=== PATIENT | male | born 1960 | race Caucasian/White ===

== ENCOUNTER 2018-06-08 20:41 | Observation (INO) | payer OTHER ==
--- NOTE | 2018-06-08 20:58 | ER Document Report ---
ED General - General Chief Complaint: S/S of Possible Stroke Stated Complaint: LEG/ARM NUMBNESS Time Seen by Provider: 06/08/18 20:49 Notes: Patient is a 57-year-old male with a past medical history of diabetes, obesity, hypertension, presents with an episode of left-sided weakness that started abruptly and has now resolved. Patient states that he was in [employer], began to feel very weak, noticed that he was having difficulty walk walking and began to feel like his left side was extremely weak. He states that he had to lift his left leg while trying get into his truck with his right arm. He noticed while his drove the truck home that he could not raise his left arm and keep it up. His stated that she had to help assist him into the house as his left-sided appeared so weak. She also noted that he had some slurred spee ch. The symptoms lasted for approximate 15-20 minutes and then resolved spontaneously. No history of similar symptoms in the past. He has not contacted his general physician regarding today's concerns. Past Medical History - General Information source: Patient - Social History Smoking Status: Never Smoker Frequency of alcohol use: Occasional Drug Abuse: None Lives with: Spouse/Significant other Family History: Reviewed & Not Pertinent Review of Systems - Review of Systems Notes: Constitutional: Negative for fever. HENT: Negative for sore throat. Eyes: Negative for visual changes. Cardiovascular: Negative for chest pain. Respiratory: Negative for shortness of breath. Gastrointestinal: Negative for abdominal pain, vomiting or diarrhea. Genitourinary: Negative for dysuria. Musculoskeletal: Negative for back pain. Skin: Negative for rash. Neurological: Negative for headaches, positive for left-sided weakness now re solved 10 point ROS negative except as marked above and in HPI. Physical Exam - Vital signs Vitals: Temp 98.5 F 06/08/18 20:57 Interpretation: Normal Notes: PHYSICAL EXAMINATION: GENERAL: Well-appearing, well-nourished and in no acute distress. HEAD: Atraumatic, normocephalic. EYES: Pupils equal round and reactive to light, extraocular movements intact, sclera anicteric, conjunctiva are normal. ENT: nares patent, oropharynx clear without exudates. Moist mucous membranes. NECK: Normal range of motion, supple without lymphadenopathy LUNGS: Breath sounds clear to auscultation bilaterally and equal. No wheezes rales or rhonchi. HEART: Regular rate and rhythm without murmurs ABDOMEN: Soft, nontender, normoactive bowel sounds. No guarding, no rebound. No masses appreciated. EXTREMITIES: Normal range of motion, no pitting or edema. No cyanosis. NEUROLOGICAL: Face symmetric. Tongue protrudes midline. Extraocular motions intact. Pupils are 2 mm and equally reactive. Normal speech, normal gait. 5 out of 5 strength in both the distal and proximal upper and lower extremities bilaterally. Sensation is grossly intact throughout. Finger to nose testing normal. Pronator drift normal. PSYCH: Normal mood, normal affect. SKIN: Warm, Dry, normal turgor, no rashes or lesions noted. Course - Re-evaluation Re-evalutation: 06/08/18 20:57 Patient presents with symptoms consistent with a TIA. Had left-sided weakness difficulty standing secondary to weakness on his left side. Symptoms have all now resolved. NIH stroke scale at time of my assessment immediately upon smita ent's arrival to the emergency department is 0. CT the head unremarkable. Labs are currently pending. ABCD 2 score is 5. 06/08/18 21:56 Patient remains without any focal neurologic deficits. Given his elevated ABCD 2 score, hypertension and diabetes with elevated glucose at time of presentation he is in the moderate risk category. He and his elected to remain in the emergency department for admission to the hospital as post outpatient follow-up which I believe is very appropriate given his elevated risk. He has been started on clopidogrel and aspirin. 06/08/18 22:02 I discussed this case with Dr. Juan Juarez who has accepted the patient for hospitalization. - Vital Signs Vital signs: Temp Pulse Resp BP Pulse Ox 98.5 F 96 27 H 169/99 H 99 06/08/18 21:30 06/08/18 21:17 06/09/18 02:51 06/09/18 02:51 06/09/18 02:51 - Laboratory Result Diagrams: 06/08/18 21:33 06/08/18 21:33 Laboratory results interpreted by me: 06/08/18 06/08/18 06/08/18 21:31 21:33 21:33 Chloride 97 L Carbon Dioxide 32 H Glucose 232 H POC Glucose 230 H Hemoglobin A1c % 6.8 H - Diagnostic Test Radiology reviewed: Image reviewed, Reports reviewed Radiology results interpreted by me: 06/08/18 22:02 CT head: No acute intracranial bleed or mass Chest x-ray: No acute infiltrate pneumothorax Discharge - Discharge Clinical Impression: TIA (transient ischemic attack), Left-sided weakness, Hyperglycemia, Essential hypertension Condition: Fair Disposition: ADMITTED INPATIENT Admitting Provider: Hospitalist Unit Admitted: [facility]
--- NOTE | 2018-06-08 21:17 | RADIOLOGY REPORT (SQ) ---
EXAM DESCRIPTION: XR CHEST 1 VIEW COMPLETED DATE/TME: 06/08/2018 20:51 CLINICAL HISTORY: 57 years, Male, stroke like symptoms COMPARISON: None. NUMBER OF VIEWS: 1 TECHNIQUE: Portable chest LIMITATIONS: None. FINDINGS: The heart size is normal. Lungs are clear. No pneumothorax IMPRESSION: Negative chest copyright 2010 [employer]- All Rights Reserved
--- NOTE | 2018-06-08 21:21 | RADIOLOGY REPORT (SQ) ---
EXAM DESCRIPTION: CT HEAD WITHOUT IV CONTRAST COMPLETED DATE/TME: 06/08/2018 00:00 CLINICAL HISTORY: 57 years, Male, stroke symptoms COMPARISON: None. TECHNIQUE: 207 Images stored on PACS. All CT scanners at this facility use dose modulation, iterative reconstruction, and/or weight based dosing when appropriate to reduce radiation dose to as low as reasonably achievable (ALARA). [facility]: Dose Right [facility]: CareDose [facility]: Dose Right [facility]: Teradose 4D [facility]: [employer] LIMITATIONS: None. FINDINGS: The globes are intact. The paranasal sinuses and mastoid air cells are unremarkable. No displaced or depressed skull fracture. No intra or extra-axial hemorrhage. CT is limited for evaluation of acute infarct. No CT evidence for large or territorial acute infarct. No mass or midline shift IMPRESSION: Negative exam TECHNICAL DOCUMENTATION: Quality ID # 436: Final reports with documentation of one or more dose reduction techniques (e.g., Automated exposure control, adjustment of the mA and/or kV according to patient size, use of iterative reconstruction technique) copyright 2011 [employer]- All Rights Reserved
[2018-06-08 21:41] LABS: ABSOLUTE BASOPHILS # (AUTO) 0.1 10^3/uL (0.0-0.2); ABSOLUTE EOSINOPHILS # (AUTO) 0.3 10^3/uL (0.0-0.6); ABSOLUTE LYMPHOCYTES (AUTO) 2.5 10^3/uL (0.5-4.7); ABSOLUTE MONOCYTES (AUTO) 0.8 10^3/uL (0.1-1.4); ABSOLUTE NEUT (AUTO) 5.5 10^3/uL (1.7-8.2); EOSINOPHILS % (AUTO) 2.8 % (0-6); HEMATOCRIT 39.3 % (37.9-51.0); HEMOGLOBIN 13.6 g/dL (13.5-17.0); LYMPHOCYTES % (AUTO) 27.3 % (13-45); MEAN CORPUSCULAR HEMOGLOBIN 29.2 pg (27.0-33.4); MEAN CORPUSCULAR HGB CONC 34.5 g/dL (32.0-36.0); MEAN CORPUSCULAR VOLUME 85 fl (80-97); MONOCYTES % (AUTO) 8.5 % (3-13); PLATELET COUNT 290 10^3/uL (150-450); RED BLOOD COUNT 4.65 10^6/uL (4.35-5.55); RED CELL DISTRIBUTION WIDTH 13.3 % (11.5-14.0); SEGMENTED NEUTROPHILS % (AUTO) 60.4 % (42-78); TOTAL CELLS COUNTED % (AUTO) 100 %; WHITE BLOOD COUNT 9.1 10^3/uL (4.0-10.5)
[2018-06-08 21:48] LABS: INTERNATIONAL RATION (INR) 0.87; PROTHROMBIN TIME 12.3 SEC (11.4-15.4)
[2018-06-08 21:49] LABS: PARTIAL THROMBOPLASTIN TIME 27.5 SEC (23.5-35.8)
[2018-06-08] MEDS ORDERED: CLOPIDOGREL BISULFATE 300 MG TABLET PO ONE (21:56)
[2018-06-08] MEDS ORDERED: ASPIRIN 81 MG TABLET, CHEWABLE PO ONE (21:57)
[2018-06-08] MEDS ORDERED: LOSARTAN POTASSIUM 50 MG TABLET PO ONE (21:57)
[2018-06-08 22:04] LABS: ALANINE AMINOTRANSFERASE 42 U/L (21-72); ALBUMIN 4.4 g/dL (3.5-5.0); ALKALINE PHOSPHATASE 70 U/L (38-126); ANION GAP 8 (5-19); ASPARTATE AMINO TRANSFERASE 19 U/L (17-59); BILIRUBIN,DIRECT 0.1 mg/dL (0.0-0.4); BILIRUBIN,TOTAL 0.5 mg/dL (0.2-1.3); BLOOD UREA NITROGEN 18 mg/dL (7-20); CALCIUM 9.9 mg/dL (8.4-10.2); CARBON DIOXIDE 32 mmol/L (22-30); CHLORIDE 97 mmol/L (98-107); CREATINE KINASE 87 U/L (55-170); GLUCOSE 232 mg/dL (75-110); TOTAL PROTEIN 6.8 g/dL (6.3-8.2)
[2018-06-08 22:14] LABS: CREATINE KINASE MB 1.31 ng/mL (<4.55)
[2018-06-08 22:17] LABS: TROPONIN I < 0.012 ng/mL
[2018-06-08] MEDS ORDERED: DEXTROSE 40% GEL 15 GM TUBE PO PRN ×2 (22:24)
[2018-06-08] MEDS ORDERED: ACETAMINOPHEN 325 MG TABLET PO PRN (22:24)
[2018-06-08] MEDS ORDERED: DEXTROSE 50%-WATER 25 GM/50 ML DISP.SYRIN IV PRN ×2 (22:24)
[2018-06-08] MEDS ORDERED: DOCUSATE SODIUM 100 MG CAPSULE PO PRN (22:24)
[2018-06-08] MEDS ORDERED: INSULIN LISPRO 100 UNIT/ML 3 ML VIAL SUBCUT PRN (22:24)
[2018-06-08] MEDS ORDERED: GLUCAGON,HUMAN RECOMB 1 MG INJ IM PRN (22:24)
[2018-06-08] MEDS: ATORVASTATIN CALCIUM 80 MG TABLET PO SCH (22:37)
--- NOTE | 2018-06-09 06:27 | PDOC H&P ---
History of Present Illness Admission Date/PCP: 06/08/18 22:31 RAYMOND SIBLEY MD Patient complains of: Left arm and leg weakness History of Present Illness: HEENA CHAMPAGNE is a 57 year old male with a past medical history of hypertension, obesity and diabetes who presents with a 20-minute abrupt onset of left-sided weakness occurring 2 hours ago while shopping at the supermarket. He has subsequently returned to baseline he had associated slurred speech, denied palpitations, chest pain, headache, blurred vision, dizziness, receptive aphasia or previous episode. He denies recent change in medications and is otherwise felt well in the emergency room his workup is unremarkable with exception to uncontrolled hypertension. He is referred to the hospitalist for observation. Past Medical History Cardiac Medical History: Reports: Hypertension Pulmonary Medical History: Reports: None EENT Medical History: Reports: None Neurological Medical History: Reports: None Endocrine Medical History: Reports: Diabetes Mellitus Type 2 Renal/ Medical History: Reports: None Malignancy Medical History: Reports: None GI Medical History: Reports: None Musculoskeltal Medical History: Reports: None Skin Medical History: Reports: None Psychiatric Medical History: Reports: None Traumatic Medical History: Reports: None Hematology: Reports: None Infectious Medical History: Reports: None Past Surgical History Past Surgical History: Reports: None Social History Information Source: Patient, [facility] Lives with: Spouse/Significant other Smoking Status: Never Smoker Frequency of Alcohol Use: None Drugs: None - Advance Directive Resuscitation Status: Full Code Family History Family History: CVA Parental Family History Reviewed: Yes Children Family History Reviewed: Yes Sibling(s) Family History Reviewed.: Yes Review of Systems Constitutional: ABSENT: chills, fever(s), headache(s), weight gain, weight loss Eyes: ABSENT: visual disturbances Ears: ABSENT: hearing changes Cardiovascular: ABSENT: chest pain, dyspnea on exertion, edema, orthropnea, palpitations Respiratory: ABSENT: cough, hemoptysis Gastrointestinal: ABSENT: abdominal pain, constipation, diarrhea, hematemesis, hematochezia, nausea, vomiting Genitourinary: ABSENT: dysuria, hematuria Musculoskeletal: ABSENT: joint swelling Integumentary: ABSENT: rash, wounds Neurological: ABSENT: abnormal gait, abnormal speech, confusion, dizziness, focal weakness, syncope Psychiatric: ABSENT: anxiety, depression, homidical ideation, suicidal ideation Endocrine: ABSENT: cold intolerance, heat intolerance, polydipsia, polyuria Hematologic/Lymphatic: ABSENT: easy bleeding, easy bruising Physical Exam Vital Signs: Temp Pulse Resp BP Pulse Ox 98.5 F 88 18 142/78 H 97 06/08/18 21:30 06/09/18 04:31 06/09/18 04:31 06/09/18 04:31 06/09/18 04:31 Intake & Output 06/07/18 06/08/18 06/09/18 11:59 11:59 11:59 Weight 124.738 kg General appearance: PRESENT: no acute distress, well-developed, well-nourished Head exam: PRESENT: atraumatic, normocephalic Eye exam: PRESENT: conjunctiva pink, EOMI, PERRLA. ABSENT: scleral icterus Ear exam: PRESENT: normal external ear exam Mouth exam: PRESENT: moist, tongue midline Neck exam: ABSENT: carotid bruit, JVD, lymphadenopathy, thyromegaly Respiratory exam: PRESENT: clear to auscultation kait. ABSENT: rales, rhonchi, wheezes Cardiovascular exam: PRESENT: RRR. ABSENT: diastolic murmur, rubs, systolic murmur Pulses: PRESENT: normal dorsalis pedis pul Vascular exam: PRESENT: normal capillary refill GI/Abdominal exam: PRESENT: normal bowel sounds, soft. ABSENT: distended, guarding, mass, organolmegaly, rebound, tenderness Rectal exam: PRESENT: deferred Extremities exam: PRESENT: full ROM. ABSENT: calf tenderness, clubbing, pedal edema Neurological exam: PRESENT: alert, awake, oriented to person, oriented to place, oriented to time, oriented to situation, CN II-XII grossly intact. ABSENT: motor sensory deficit Psychiatric exam: PRESENT: appropriate affect, normal mood. ABSENT: homicidal ideation, suicidal ideation Skin exam: PRESENT: dry, intact, warm. ABSENT: cyanosis, rash Results Laboratory Results: 06/08/18 21:33 06/08/18 21:33 06/08/18 06/08/18 21:33 21:33 WBC 9.1 RBC 4.65 Hgb 13.6 Hct 39.3 MCV 85 MCH 29.2 MCHC 34.5 RDW 13.3 Plt Count 290 Seg Neutrophils % 60.4 Lymphocytes % 27.3 Monocytes % 8.5 Eosinophils % 2.8 Basophils % 1.0 Absolute Neutrophils 5.5 Absolute Lymphocytes 2.5 Absolute Monocytes 0.8 Absolute Eosinophils 0.3 Absolute Basophils 0.1 Sodium 137.0 Potassium 4.0 Chloride 97 L Carbon Dioxide 32 H Anion Gap 8 BUN 18 Creatinine 0.88 Est GFR ( Amer) > 60 Est GFR (Non-Af Amer) > 60 Glucose 232 H Calcium 9.9 Total Bilirubin 0.5 AST 19 ALT 42 Alkaline Phosphatase 70 Total Protein 6.8 Albumin 4.4 06/08/18 06/08/18 21:33 21:33 Creatine Kinase 87 CK-MB (CK-2) 1.31 Troponin I < 0.012 Impressions: Head CT 06/08/18 00:00 IMPRESSION: Negative exam TECHNICAL DOCUMENTATION: Quality ID # 436: Final reports with documentation of one or more dose reduction techniques (e.g., Automated exposure control, adjustment of the mA and/or kV according to patient size, use of iterative reconstruction technique) copyright 2011 [employer]- All Rights Reserved Chest X-Ray 06/08/18 20:51 IMPRESSION: Negative chest copyright 2010 [employer]- All Rights Reserved Assessment & Plan - Diagnosis (1) TIA (transient ischemic attack) Is this a current diagnosis for this admission?: Yes Plan: IMCU observation with a CVA care set, follow-up lipid profile, A1c, carotid Doppler and MRI. (2) Essential hypertension Is this a current diagnosis for this admission?: Yes Plan: Permissive hypertension (3) Hyperglycemia Is this a current diagnosis for this admission?: Yes Plan: Humalog sliding scale, follow-up medication reconciliation for outpatient regiment. - Time Time Spent: 50 to 70 Minutes
[2018-06-09] MEDS: HEPARIN SOD (PORCINE) 5,000 UNIT/ML 1 ML SYRINGE SUBCUT SCH ×3 (06:34→21:36)
--- NOTE | 2018-06-09 07:55 | EKG REPORT ---
SEVERITY:- ABNORMAL ECG - SINUS RHYTHM RIGHT BUNDLE BRANCH BLOCK : Confirmed by: Belinda Rojas MD 09-Jun-2018 07:54:27
--- NOTE | 2018-06-09 07:55 | EKG REPORT ---
SEVERITY:- ABNORMAL ECG - SINUS RHYTHM RIGHT BUNDLE BRANCH BLOCK : Confirmed by: Belinda Rojas MD 09-Jun-2018 07:54:33
[2018-06-09 07:57] LABS: CHOLESTEROL 184.18 mg/dL (0-200); TRIGLYCERIDES 66 mg/dL (<150)
[2018-06-09 08:08] LABS: DIRECT LDL 135 mg/dL (<100)
[2018-06-09] MEDS: ASPIRIN 325 MG TABLET, ENT COATED PO SCH (09:13)
--- NOTE | 2018-06-09 12:25 | RADIOLOGY REPORT (SQ) ---
EXAM DESCRIPTION: MRI HEAD WITHOUT COMPLETED DATE/TIME: 06/09/2018 11:22 am REASON FOR STUDY: Left leg weak COMPARISON: CT BRAIN 06/08/2018 TECHNIQUE: Multiplanar imaging includes non-contrasted T1, T2, FLAIR, and diffusion with ADC map seq uences. Images stored on PACS. LIMITATIONS: None. FINDINGS: ANATOMY: No anomalies. Normal vascular flow voids. Pituitary fossa normal. CSF SPACES: Normal in size and contour. No hemorrhage. CEREBRUM: There is no MR evidence of acute ischemic change, acute intracranial hemorrhage, mass effec t, or midline shift. There is an old cortical and subcortical white matter infarct in the left precentral gyrus region whi ch has minimal hemosiderin staining on gradient echo T2 images. Mild spotty chronic small vessel ischemic changes present in the deep periventricular white matter in the bifrontal and biparietal regions. POSTERIOR FOSSA: Punctate focus of increased FLAIR/ T2 signal in the right mid livier likely minimal ch ronic small vessel ischemic change. No acute hemorrhage. No edema, masses or mass effect. Internal auditory canals, cerebello-pontine angles, mastoids normal. DIFFUSION IMAGING: Negative for acute or sub-acute infarction. ORBITS: No masses. Globes normal. PARANASAL SINUSES: No fluid levels. Mucosa normal. OTHER: No other significant finding. 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 Mild white matter disease in the hemispheres and right livier. No MR evidence of acute ischemic change, acute intracranial hemorrhage, mass effect, or midline shift EVIDENCE OF ACUTE STROKE: NO. TECHNICAL DOCUMENTATION: JOB ID: [id number] [employer]- All Rights Reserved Reading location - IP/workstation name: [facility]
--- NOTE | 2018-06-09 17:35 | PDOC PROGRESS REPORT ---
Subjective Progress Note for:: 06/09/18 Subjective:: No adverse events overnight. No new complaints. He said he does not have any more weakness in his legs or his right arm. He said nothing like this is ever happened to him before. No visual disturbances or headache. Reason For Visit: TIA HTN DM Physical Exam Vital Signs: Temp Pulse Resp BP Pulse Ox 98.5 F 74 20 179/105 H 98 06/08/18 21:30 06/09/18 16:11 06/09/18 16:00 06/09/18 16:00 06/09/18 16:00 Intake & Output 06/08/18 06/09/18 06/10/18 06:59 06:59 06:59 Output Total 300 Balance -300 Weight 124.738 kg General appearance: PRESENT: no acute distress, cooperative, morbidly obese Eye exam: PRESENT: EOMI, PERRLA Respiratory exam: PRESENT: clear to auscultation kait, symmetrical, unlabored. ABSENT: accessory muscle use, crackles, prolonged expiratory phas, rhonchi, tachypnea, wheezes Cardiovascular exam: PRESENT: RRR, +S1, +S2 Vascular exam: PRESENT: normal capillary refill GI/Abdominal exam: PRESENT: normal bowel sounds, soft. ABSENT: distended, guarding, rebound, tenderness Extremities exam: ABSENT: clubbing, pedal edema Musculoskeletal exam: PRESENT: normal inspection. ABSENT: deformity Neurological exam: PRESENT: alert, awake, oriented to person, oriented to place, oriented to time, oriented to situation Psychiatric exam: PRESENT: appropriate affect, normal mood Skin exam: PRESENT: dry, warm Results Laboratory Results: 06/08/18 21:33 06/08/18 21:33 06/08/18 06/08/18 06/09/18 21:33 21:33 06:56 WBC 9.1 RBC 4.65 Hgb 13.6 Hct 39.3 MCV 85 MCH 29.2 MCHC 34.5 RDW 13.3 Plt Count 290 Seg Neutrophils % 60.4 Lymphocytes % 27.3 Monocytes % 8.5 Eosinophils % 2.8 Basophils % 1.0 Absolute Neutrophils 5.5 Absolute Lymphocytes 2.5 Absolute Monocytes 0.8 Absolute Eosinophils 0.3 Absolute Basophils 0.1 Sodium 137.0 Potassium 4.0 Chloride 97 L Carbon Dioxide 32 H Anion Gap 8 BUN 18 Creatinine 0.88 Est GFR ( Amer) > 60 Est GFR (Non-Af Amer) > 60 Glucose 232 H Calcium 9.9 Total Bilirubin 0.5 AST 19 ALT 42 Alkaline Phosphatase 70 Total Protein 6.8 Albumin 4.4 Triglycerides 66 Cholesterol 184.18 LDL Cholesterol Direct 135 H VLDL Cholesterol 13.0 HDL Cholesterol 41 06/08/18 06/08/18 21:33 21:33 Creatine Kinase 87 CK-MB (CK-2) 1.31 Troponin I < 0.012 Impressions: Head CT 06/08/18 00:00 IMPRESSION: Negative exam TECHNICAL DOCUMENTATION: Quality ID # 436: Final reports with documentation of one or more dose reduction techniques (e.g., Automated exposure control, adjustment of the mA and/or kV according to patient size, use of iterative reconstruction technique) copyright 2010 [employer]- All Rights Reserved Chest X-Ray 06/08/18 20:51 IMPRESSION: Negative chest copyright 2010 [employer]- All Rights Reserved Head MRI 06/09/18 00:00 IMPRESSION: 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 Mild white matter disease in the hemispheres and right livier. No MR evidence of acute ischemic change, acute intracranial hemorrhage, mass effect, or midline shift EVIDENCE OF ACUTE STROKE: NO. Assessment & Plan - Diagnosis (1) TIA (transient ischemic attack) Is this a current diagnosis for this admission?: Yes Plan: MRI has been done that shows an old stroke but nothing new. The rest of his workup including evaluations by the various therapists is still pending. Permissive hypertension for the first 24 hours, then we will try to bring his blood pressure down a little bit more. We will focus on risk factor modification. (2) Essential hypertension Is this a current diagnosis for this admission?: Yes Plan: As noted above - Time Time Spent with patient: 25-34 minutes
[2018-06-09] MEDS: ATORVASTATIN CALCIUM 80 MG TABLET PO SCH (21:36)
[2018-06-10] MEDS: HEPARIN SOD (PORCINE) 5,000 UNIT/ML 1 ML SYRINGE SUBCUT SCH ×3 (05:57→22:31)
[2018-06-10] MEDS: ASPIRIN 325 MG TABLET, ENT COATED PO SCH (09:08)
[2018-06-10] MEDS: LOSARTAN POTASSIUM 50 MG TABLET PO SCH (09:08)
--- NOTE | 2018-06-10 12:39 | RADIOLOGY REPORT (SQ) ---
EXAM DESCRIPTION: CAROTID DOPPLER COMPLETED DATE/TIME: 06/10/2018 11:00 am REASON FOR STUDY: tia Left leg weak COMPARISON: MRI brain 06/09/2018 CT brain 06/08/2018 TECHNIQUE: Grayscale ultrasound, Doppler velocity and spectra, and color Doppler images acquired of the extra-cranial carotid and vertebral arteries. Images stored on PACS. LIMITATIONS: None. FINDINGS: RIGHT CAROTID CCA Velocities: Within normal limits. Right common carotid artery peak systolic velocity 1.1 m/sec ICA Velocities Peak systolic 0.54 m/s. End diastolic 0.19 m/s. Proximal ICA/CCA peak systolic ratio 1.0. Spectra normal. No significant plaque. LEFT CAROTID CCA Velocities: Within normal limits. Left common carotid artery peak systolic velocity 1.3 m/sec ICA Velocities Peak systolic 0.62 m/s. End diastolic 0.22 m/s. Proximal ICA/CCA peak systolic ratio normal. Spectra normal. No significant plaque. VERTEBRAL ARTERIES: Antegrade flow. Normal waveforms. SUBCLAVIAN ARTERIES: Not evaluated OTHER: No other significant finding. IMPRESSION: NO HEMODYNAMICALLY SIGNIFICANT STENOSIS. COMMENT: Quality ID #195: Velocity criteria are extrapolated from the diameter data as defined by t he Society of Radiologists in Ultrasound Consensus Conference. Radiology 2003: 229; 340-346. TECHNICAL DOCUMENTATION: JOB ID: [id number] [employer]- All Rights Reserved Reading location - IP/workstation name: [facility]
[2018-06-10] MEDS ORDERED: AMLODIPINE BESYLATE 10 MG TABLET PO ONE (14:11)
--- NOTE | 2018-06-10 17:58 | PDOC PROGRESS REPORT ---
Subjective Progress Note for:: 06/10/18 Subjective:: No adverse events overnight. No new complaints. Blood pressure remains elevated despite the fact that we started him back on his losartan. Gave him some Norvasc today and that did not really do a whole lot for his blood pressure either. No numbness, weakness, or tingling. Reason For Visit: TIA HTN DM Physical Exam Vital Signs: Temp Pulse Resp BP Pulse Ox 97.6 F 81 18 164/88 H 100 06/10/18 12:51 06/10/18 14:00 06/10/18 12:51 06/10/18 17:53 06/10/18 12:51 Intake & Output 06/09/18 06/10/18 06/11/18 06:59 06:59 06:59 Intake Total 237 Output Total 300 Balance -300 237 Weight 124.738 kg 128.2 kg General appearance: PRESENT: no acute distress, cooperative, morbidly obese Eye exam: PRESENT: EOMI, PERRLA Respiratory exam: PRESENT: clear to auscultation kait, symmetrical, unlabored. ABSENT: accessory muscle use, crackles, prolonged expiratory phas, rhonchi, tachypnea, wheezes Cardiovascular exam: PRESENT: RRR, +S1, +S2 Vascular exam: PRESENT: normal capillary refill GI/Abdominal exam: PRESENT: normal bowel sounds, soft. ABSENT: distended, guarding, rebound, tenderness Extremities exam: ABSENT: clubbing, pedal edema Musculoskeletal exam: PRESENT: normal inspection. ABSENT: deformity Neurological exam: PRESENT: alert, awake, oriented to person, oriented to place, oriented to time, oriented to situation Psychiatric exam: PRESENT: appropriate affect, normal mood Skin exam: PRESENT: dry, warm Results Laboratory Results: 06/08/18 21:33 06/08/18 21:33 06/08/18 06/08/18 21:33 21:33 Creatine Kinase 87 CK-MB (CK-2) 1.31 Troponin I < 0.012 Impressions: Head CT 06/08/18 00:00 IMPRESSION: Negative exam TECHNICAL DOCUMENTATION: Quality ID # 436: Final reports with documentation of one or more dose reduction techniques (e.g., Automated exposure control, adjustment of the mA and/or kV according to patient size, use of iterative reconstruction technique) copyright 2011 [employer]- All Rights Reserved Chest X-Ray 06/08/18 20:51 IMPRESSION: Negative chest copyright 2011 [employer]- All Rights Reserved Head MRI 06/09/18 00:00 IMPRESSION: 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 Mild white matter disease in the hemispheres and right livier. No MR evidence of acute ischemic change, acute intracranial hemorrhage, mass effect, or midline shift EVIDENCE OF ACUTE STROKE: NO. Carotid Doppler Study 06/10/18 00:00 IMPRESSION: NO HEMODYNAMICALLY SIGNIFICANT STENOSIS. Assessment & Plan - Diagnosis (1) TIA (transient ischemic attack) Is this a current diagnosis for this admission?: Yes Plan: MRI has been done that shows an old stroke but nothing new. Carotid Doppler was negative. He is not had any trouble walking, using his hands, or eating. Are still trying to get his blood pressure down. He said that he had previously had muscle aches on a statin but was agreeable to try a lower potency statin at discharge. We will focus on risk factor modification. (2) Essential hypertension Is this a current diagnosis for this admission?: Yes Plan: We started him back on his losartan and his blood pressure was still high. We added Norvasc and his pressure was still high. I have added a dose of chlorthalidone for the morning. If we can get his blood pressure under control we can send him home. - Time Time Spent with patient: 25-34 minutes
[2018-06-10] MEDS: ATORVASTATIN CALCIUM 80 MG TABLET PO SCH (22:31)
[2018-06-11] MEDS: HEPARIN SOD (PORCINE) 5,000 UNIT/ML 1 ML SYRINGE SUBCUT SCH (06:08)
[2018-06-11] MEDS ORDERED: CHLORTHALIDONE 25 MG TABLET PO SCH (10:00)
[2018-06-11] MEDS ORDERED: AMLODIPINE BESYLATE 10 MG TABLET PO SCH (10:00)
[2018-06-11] MEDS: ASPIRIN 325 MG TABLET, ENT COATED PO SCH (10:11)
[2018-06-11] MEDS: LOSARTAN POTASSIUM 50 MG TABLET PO SCH (10:11)
[2018-06-11 12:14] VITALS: BP 170/85
--- NOTE | 2018-06-11 17:23 | PDOC DISCHARGE SUMMARY ---
General - Admit/Disc Date/PCP Admission Date/Primary Care Provider: 06/08/18 22:31 RAYMOND SIBLEY MD Discharge Date: 06/11/18 - Discharge Diagnosis (1) TIA (transient ischemic attack) Is this a current diagnosis for this admission?: Yes Summary: His symptoms spontaneously resolved. He was worked up for stroke and his workup was negative for an acute stroke, but he has had evidence of a small stroke in the past. We will start him on aspirin and a small dose of the statin, because he said he had previously could not tolerate statins in the past and so put him on pravastatin because it is a lower potency and should be less likely to cause muscle aches. (2) Essential hypertension Is this a current diagnosis for this admission?: Yes Summary: He was on losartan at home, and we had to add amlodipine and chlorthalidone to get his blood pressure under control. - Additional Information Resuscitation Status: Full Code Discharge Diet: Cardiac, Diabetic Discharge Activity: Activity As Tolerated Prescriptions: Amlodipine Besylate [Norvasc 10 mg Tablet] 10 mg PO DAILY #30 tablet Aspirin [Aspirin 81 mg Chewable Tablet] 81 mg PO DAILY #1 pkg Chlorthalidone [Hygroton 25 mg Tablet] 25 mg PO DAILY #30 tablet Pravastatin Sodium 20 mg PO DAILY #30 tablet Home Medications: Losartan Potassium [Cozaar 50 mg Tablet] 50 mg PO DAILY 06/09/18 Metformin HCl [Metformin HCl ER] 500 mg PO BID 06/09/18 Amlodipine Besylate [Norvasc 10 mg Tablet] 10 mg PO DAILY #30 tablet 06/11/18 Aspirin [Aspirin 81 mg Chewable Tablet] 81 mg PO DAILY #1 pkg 06/11/18 Chlorthalidone [Hygroton 25 mg Tablet] 25 mg PO DAILY #30 tablet 06/11/18 Pravastatin Sodium 20 mg PO DAILY #30 tablet 06/11/18 History of Present Illness History of Present Illness: HEENA CHAMPAGNE is a 57 year old male with a past medical history of hypertension, obesity and diabetes who presents with a 20-minute abrupt onset of left-sided weakness occurring 2 hours ago while shopping at the [employer]. He has subsequently returned to baseline he had associated slurred speech, denied palpitations, chest pain, headache, blurred vision, dizziness, receptive aphasia or previous episode. He denies recent change in medications and is otherwise felt well in the emergency room his workup is unremarkable with exception to uncontrolled hypertension. He is referred to the hospitalist for observation. Hospital Course Hospital Course: He had no evidence of acute stroke on his workup, but he did have evidence of a small prior stroke. He said this was the first time he ever had any symptoms like this. His symptoms resolved spontaneously. We got his blood pressure under control and are sending him home on aspirin and statin. He will continue his metformin for his diabetes. He does not smoke. His labs and examination were reassuring and he was discharged in good condition. Physical Exam Vital Signs: Temp Pulse Resp BP Pulse Ox 97.6 F 76 16 170/85 H 99 06/11/18 12:12 06/11/18 12:12 06/11/18 12:12 06/11/18 12:12 06/11/18 12:12 Intake & Output 06/10/18 06/11/18 06/12/18 06:59 06:59 06:59 Intake Total 237 1125 Balance 237 1125 Weight 128.2 kg 129 kg General appearance: PRESENT: no acute distress, cooperative, morbidly obese Eye exam: PRESENT: EOMI, PERRLA Respiratory exam: PRESENT: clear to auscultation kait, symmetrical, unlabored. ABSENT: accessory muscle use, crackles, prolonged expiratory phas, rhonchi, tachypnea, wheezes Cardiovascular exam: PRESENT: RRR, +S1, +S2 Vascular exam: PRESENT: normal capillary refill GI/Abdominal exam: PRESENT: normal bowel sounds, soft. ABSENT: distended, guarding, rebound, tenderness Extremities exam: ABSENT: clubbing, pedal edema Musculoskeletal exam: PRESENT: normal inspection. ABSENT: deformity Neurological exam: PRESENT: alert, awake, oriented to person, oriented to place, oriented to time, oriented to situation Psychiatric exam: PRESENT: appropriate affect, normal mood Skin exam: PRESENT: dry, warm Results Laboratory Results: 06/08/18 21:33 06/08/18 21:33 06/08/18 06/08/18 21:33 21:33 Creatine Kinase 87 CK-MB (CK-2) 1.31 Troponin I < 0.012 Impressions: Head CT 06/08/18 00:00 IMPRESSION: Negative exam TECHNICAL DOCUMENTATION: Quality ID # [id number]: Final reports with documentation of one or more dose reduction techniques (e.g., Automated exposure control, adjustment of the mA and/or kV according to patient size, use of iterative reconstruction technique) copyright 2010 [employer]- All Rights Reserved Chest X-Ray 06/08/18 20:51 IMPRESSION: Negative chest copyright 2010 [employer]- All Rights Reserved Head MRI 06/09/18 00:00 IMPRESSION: 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 Mild white matter disease in the hemispheres and right livier. No MR evidence of acute ischemic change, acute intracranial hemorrhage, mass effect, or midline shift EVIDENCE OF ACUTE STROKE: NO. Carotid Doppler Study 06/10/18 00:00 IMPRESSION: NO HEMODYNAMICALLY SIGNIFICANT STENOSIS. Qualifiers - * PATIENT BEING DISCHARGED WITH ANY OF THE FOLLOWING DIAGNOSIS: No
== END 2018-06-11 13:27 | disposition home or self-care (01) ==
LOC: ER 20:41 → EH 22:31 → 3S 06-09 15:54
PROVIDERS: ADMIT Internal Medicine; ATTEND Internal Medicine
DX: G45.9 Transient cerebral ischemic attack, unspecified (principal); I10 Essential (primary) hypertension; E11.65 Type 2 diabetes mellitus with hyperglycemia; E66.01 Morbid (severe) obesity due to excess calories; Z86.73 Personal history of transient ischemic attack (TIA), and cerebral infarction without residual deficits; Z79.84 Long term (current) use of oral hypoglycemic drugs; Z79.82 Long term (current) use of aspirin; Z82.3 Family history of stroke
CPT/HCPCS: 93005 ×2; 99285; 36415 ×2; 82553; 82962 ×4; 82550; 85025; 85610; 85730; 80053; 84484; 83036 ×2; 80061; 93880; 70551; 71045; 70450; 93010 ×2; 94660; J3490 ×4; J1644 ×3; G0378